=== PATIENT | male | born 1970 | race Caucasian/White ===

== ENCOUNTER 2019-03-31 06:54 | Emergency (ER) | payer MEDICAID ==
[~2019-03-31] VITALS: Ht 190.5 cm; Wt 136.1 kg
[2019-03-31 06:54] VITALS: BP 150/95
--- NOTE | 2019-03-31 06:55 | NUR ---
PT AMBULATED TO BED 4
--- NOTE | 2019-03-31 07:00 | NUR ---
Patient presents to emergency department with c/o chest discomfort for approx 4 days. Patient reports a cough for 2 weeks and shortness of breath when lying down flat. Denies any fever, chills, nausea, vomiting. Patient does report some jaw, shoulder and left arm discomfort. Connected to employment manager; Vital sings stable. Bed locked and in lowest position. ERMD to evaluate pt.
[2019-03-31] MEDS ORDERED: MORPHINE SULFATE 2 MG/ML SYR IVP ONE (07:10)
--- NOTE | 2019-03-31 07:32 | NUR ---
20G IV STARTED TO RIGHT AC; BLOOD DRAWN AND SENT TO LAB WITH ROXIE BARKSDALE.
[2019-03-31 07:37] LABS: HEMATOCRIT 48.4 % (36-52); HEMOGLOBIN 16.4 g/dL (12.0-18.0); MEAN CORPUSCULAR VOLUME 87.7 fL (80-94); RED BLOOD CELL COUNT(AUTO) 5.52 MIL/uL (4.20-6.10); WHITE BLOOD COUNT (AUTO) 7.6 K/uL (4.8-10.8)
[2019-03-31 07:38] LABS: BASOPHILS % (AUTO) 0.6 % (0.0-2.0); EOSINOPHILS # (AUTO) 0.1 K/uL (0-0.4); EOSINOPHILS % (AUTO) 1.4 % (0.0-4.0); LYMPHOCYTES # (AUTO) 1.4 K/uL (2.0-11.5); LYMPHOCYTES % (AUTO) 18.3 % (20.5-51.1); MEAN CORPUSCULAR HEMOGLOBIN 30 pg (27-31); MEAN CORPUSCULAR HGB CONC 34 g/dL (33-37); MONOCYTES # (AUTO) 0.5 K/uL (0.8-1.0); MONOCYTES % (AUTO) 6.1 % (1.7-9.3); NEUTROPHILS # (AUTO) 5.6 K/uL (1.8-7.7); NEUTROPHILS % (AUTO) 73.6 % (42.2-75.2); PLATELET COUNT (AUTO) 186 K/uL (140-450)
--- NOTE | 2019-03-31 07:42 | NUR ---
X-RAY AT BEDSIDE.
[2019-03-31] MEDS ORDERED: FUROSEMIDE 40 MG/4 ML VIAL IVP ONE (08:00)
--- NOTE | 2019-03-31 09:11 | NUR ---
Oxygen applied at 2 L per minute via NC. 02 saturation 97% by pulse oximetry.
[2019-03-31 10:22] LABS: CARBON DIOXIDE 29.8 mmol/L (21-32); CREATININE 1.2 mg/dL (0.7-1.3); POTASSIUM 3.8 mmol/L (3.5-5.1)
--- NOTE | 2019-03-31 10:29 | NUR ---
PT RESTING IN BED; DENIES ANY CHEST PAIN AT THIS TIME. VSS
[2019-03-31 10:43] LABS: ALBUMIN 3.4 g/dL (3.4-5.0); TOTAL BILIRUBIN 0.6 mg/dL (0.0-1.0)
--- NOTE | 2019-03-31 10:50 | NUR ---
CRITICAL LAB REPORT VALUE RECEIVED FROM ARVIND FROM LAB, TROPONIN: [phone]. DR LOPEZ MADE AWARE
[2019-03-31] MEDS ORDERED: Lasix (10:54)
[2019-03-31] MEDS ORDERED: PLAVIX PO (10:54)
[2019-03-31] MEDS ORDERED: ASPIRIN PO (10:54)
[2019-03-31] MEDS ORDERED: ASPIRIN 325 MG TAB PO ONE (10:55)
--- NOTE | 2019-03-31 12:31 | NUR ---
PT ASLEEP. EASILY AROUSABLE. FULL CLEAR SPEECH. EVEN AND UNLABORED BREATHING. NO SIGNS AND SYMPTOMS OF DISTRES NOTED. SAFETY ENSURED. WILL CONTINUE TO MONITOR.
--- NOTE | 2019-03-31 12:55 | NUR ---
Patient to be transferred to [facility] Is being transferred due to chest pain and mild CHF. Receiving facility has accepting physician and available space. ER physician has signed transfer form. Patient or responsible democrat has agreed to transfer and signed form. Patient belongings inventoried and will be sent with patient. Copy of nursing notes, lab reports, EKG, Physicians Orders and X-rays to be sent with patient. Report called to HERNANDEZ Chavez at receiving facility. ambulance service has been called for transfer. ETA is [id number].
--- NOTE | 2019-03-31 13:19 | NUR ---
Pt transferred to [facility]; accepting physician is Dr. Joseph. Pt left via [facility] ambulance in stable condition.
[2019-03-31 13:21] VITALS: BP 152/96
== END 2019-03-31 13:19 | disposition short-term general hospital (02) ==
LOC: MED 06:54
DX: I11.0 Hypertensive heart disease with heart failure (principal); I50.9 Heart failure, unspecified; R79.89 Other specified abnormal findings of blood chemistry; Z86.73 Personal history of transient ischemic attack (TIA), and cerebral infarction without residual deficits; Z95.1 Presence of aortocoronary bypass graft; Z79.82 Long term (current) use of aspirin; Z79.899 Other long term (current) drug therapy
CPT/HCPCS: 36415; 71045; 80053; 83880; 84484; 85025; 93005; 96374; 99285; J1940; Q0092